=== PATIENT | male | born 1995 | race Hispanic/Latino ===

== ENCOUNTER 2023-09-01 09:15 | Inpatient (IN) | payer BC ==
[~2023-09-01] VITALS: Ht 182.9 cm; Wt 102.7 kg
[2023-09-01 12:05] LABS: BASOPHILS # (AUTO) 0.03 K/uL (0.00-0.20); BASOPHILS % (AUTO) 0.4 % (0.0-5.0); EOSINOPHILS # (AUTO) 0.06 K/uL (0.00-0.70); EOSINOPHILS % (AUTO) 0.8 % (0.0-8.0); IMMATURE GRANULOCYTE ABSOLUTE 0.02 K/uL (0-1); LYMPHOCYTES # (AUTO) 0.9 K/uL (1.0-4.8); LYMPHOCYTES % (AUTO) 11.3 % (21.0-51.0); MEAN CORPUSCULAR HEMOGLOBIN 30.9 pg (27.0-33.0); MEAN CORPUSCULAR HGB CONC 34.5 g/dL (32.0-36.0); MEAN CORPUSCULAR VOLUME 89.4 fL (79-99); MONOCYTES # (AUTO) 0.9 K/uL (0.1-1.0); MONOCYTES % (AUTO) 12.2 % (3.0-13.0); NEUTROPHILS # (AUTO) 5.7 K/uL (1.8-7.7); PLATELET COUNT (AUTO) 295 K/uL (130-400); RED BLOOD CELL COUNT(AUTO) 4.92 MIL/uL (4.50-6.20); RED CELL DISTRIBUTION WIDTH 11.5 % (11.0-15.5); WHITE BLOOD COUNT (AUTO) 7.6 K/uL (4.8-10.8)
[2023-09-01 12:13] VITALS: BP 124/75; PULSE 74; RESP 16
[2023-09-01 13:12] LABS: ALBUMIN 4.2 g/dL (3.5-5.0); BILIRUBIN,TOTAL 0.4 mg/dL (0.2-1.0); CREATININE 1.1 mg/dL (0.5-1.3); POTASSIUM 4.7 mmol/L (3.5-5.1); TOTAL PROTEIN, SERUM 8.9 g/dL (6.0-8.3)
[2023-09-01] MEDS ORDERED: GUAI120015 PO (13:15)
[2023-09-01] MEDS ORDERED: ACET-2247 PO (13:15)
[2023-09-03] VITALS (27 sets, daily range): BP systolic 127–145; BP diastolic 57–83; PULSE 73–103; RESP 16–19; O2SAT 96–99
[2023-09-03] MEDS: HYDROMORPHONE 1 MG INJ ONE (07:16)
[2023-09-03] MEDS: FAMOTIDINE 20MG VIAL IV ONE (07:17)
[2023-09-03] MEDS: ACETAMINOPHEN 1,000 MG/100 ML VIAL IV ONE (07:17)
[2023-09-03] MEDS ORDERED: LIDOCAINE PF 100MG/5ML (2%) SYRINGE 5ML ONE (07:21)
[2023-09-03] MEDS ORDERED: PROPOFOL 10 MG/ML 20ML VIAL IV ONE (07:21)
[2023-09-03] MEDS ORDERED: ROCURONIUM BROMIDE 10MG/1ML 5ML VL ONE ×2 (07:22→10:22)
[2023-09-03] MEDS ORDERED: MIDAZOLAM HCL 1 MG/ML 2ML VIAL ONE (07:22)
[2023-09-03] MEDS ORDERED: FENTANYL CITRATE PF 50 MCG/1 ML 2ML VIAL ONE (07:22)
[2023-09-03] MEDS ORDERED: BUPIVACAINE/PF 0.5% 30ML VIAL ONE (07:42)
[2023-09-03] MEDS: LACTATED RINGERS 1000ML 1,000 ML IV ONE (08:04)
[2023-09-03] MEDS: BUPIVACAINE/PF 0.5% 30ML VIAL INJ ONE (08:22)
[2023-09-03] MEDS: CEFAZOLIN SODIUM 2 GM VIAL ONE (08:40)
[2023-09-03] MEDS: METRONIDAZOLE 500MG/100ML BAG 200 ML ONE (08:45)
[2023-09-03] MEDS ORDERED: PHENYLEPHRINE HCL 10 MG/ML 1ML VIAL IV ONE (08:59)
[2023-09-03] MEDS ORDERED: ONDANSETRON 4MG INJ ONE (09:02)
[2023-09-03] MEDS ORDERED: DEXAMETHASONE SOD PHOSPHATE 4 MG/ML 1ML VIAL ONE (09:02)
[2023-09-03] MEDS ORDERED: FENTANYL CITRATE PF 50 MCG/1 ML 5ML AMP IV ONE (10:12)
[2023-09-03] MEDS ORDERED: NEOSTIGMINE METHYLSULFATE 1MG/ML IV ONE (10:13)
[2023-09-03] MEDS ORDERED: GLYCOPYRROLATE 0.2 MG/ML 5 ML VIAL ONE (10:13)
[2023-09-03] MEDS ORDERED: KETOROLAC 30MG VIAL (30MG/ML) ONE (12:32)
[2023-09-03] MEDS: KETOROLAC 30MG VIAL (30MG/ML) ONE (12:37)
[2023-09-03] MEDS: SUCRALFATE 1 GM/10 ML PO SCH (13:00)
[2023-09-03] MEDS ORDERED: ONDANSETRON 4MG INJ IVP PRN (13:00)
[2023-09-03] MEDS ORDERED: PROCHLORPERAZINE 10MG/2ML INJ IV PRN (13:00)
[2023-09-03] MEDS: ENOXAPARIN SODIUM 30 MG/0.3 ML SQ SCH (13:00)
[2023-09-03] MEDS: LACTATED RINGERS 1000ML 1,000 ML IV SCH (13:05)
[2023-09-03] MEDS: KETOROLAC 15MG/ML VIAL (15MG/ML) IV PRN (14:54)
[2023-09-03] MEDS: FAMOTIDINE 20MG VIAL IV SCH (19:52)
[2023-09-03] MEDS: HYDROCODONE/ACETAMINOPHEN 7.5/325 MG 15 ML UDCUP PO PRN (19:52)
[2023-09-04] VITALS (8 sets, daily range): BP systolic 131–155; BP diastolic 73–84; PULSE 76–92; RESP 13–20; O2SAT 92–98
[2023-09-04] MEDS: HYDROMORPHONE 1 MG INJ IVP PRN (04:33)
[2023-09-04] MEDS ORDERED: DIATR MEGLU/DIATRIZOATE SODIUM 30 ML BOTTLE ONE (08:27)
[2023-09-04] MEDS: KETOROLAC 15MG/ML VIAL (15MG/ML) IV SCH (10:08)
[2023-09-04] MEDS ORDERED: HYDROMORPHONE 0.5 MG SYG (0.5MG/0.5ML) IVP PRN (13:30)
[2023-09-04] MEDS: SIMETHICONE 80 MG TAB.CHEW PO PRN (13:52)
[2023-09-04] MEDS: ENOXAPARIN SODIUM 40 MG/0.4 ML SYRINGE SQ SCH (13:56)
[2023-09-04] MEDS: SIMETHICONE 80 MG TAB.CHEW PO SCH (17:55)
[2023-09-04] MEDS: BISACODYL 5 MG TABLET.DR PO SCH (20:25)
[2023-09-05] VITALS: BP 122/74; PULSE 76; RESP 20
[2023-09-05 04:00] VITALS: BP 142/84; PULSE 85; RESP 20
[2023-09-05 08:00] VITALS: BP 143/83; PULSE 99; RESP 18; O2SAT 90
[2023-09-05 11:53] VITALS: BP 140/81; PULSE 86; RESP 18
[2023-09-05 15:42] VITALS: BP 149/88; PULSE 80; RESP 18
== END 2023-09-05 16:10 | disposition home or self-care (01) | DRG 328 ==
LOC: DAHIP 09-03 06:03 → 4DH 09-03 14:10
PROVIDERS: ADMIT Surgery; ATTEND Surgery
PROC: 8E0W4CZ Robotic Assisted Procedure of Trunk Region, Percutaneous Endoscopic Approach (ICD-10-PCS; 2023-09-03)
PROC: 0DB38ZZ Excision of Lower Esophagus, Via Natural or Artificial Opening Endoscopic (ICD-10-PCS; principal; 2023-09-03 08:14)
PROC: 0BUT4JZ Supplement Diaphragm with Synthetic Substitute, Percutaneous Endoscopic Approach (ICD-10-PCS; 2023-09-03 08:14)
PROC: 0DB64ZZ Excision of Stomach, Percutaneous Endoscopic Approach (ICD-10-PCS; 2023-09-03 08:14)
PROC: 0DUU47Z Supplement Omentum with Autologous Tissue Substitute, Percutaneous Endoscopic Approach (ICD-10-PCS; 2023-09-03 08:14)
DX: K22.89 Other specified disease of esophagus (principal); K44.9 Diaphragmatic hernia without obstruction or gangrene; R19.09 Other intra-abdominal and pelvic swelling, mass and lump; K31.89 Other diseases of stomach and duodenum
CPT/HCPCS: 36415; 43235; 74240; 80053; 85025; 86850; 86900; 86901; 93005; G0378; J1100; J1170; J1650; J1885; J2001; J2250; J2371; J2405; J2704; J2710; J3010; J3490; J7030; J7120; Q9963; A4213; A4215; A4221; A4222; A4223; A4600; A4663; A6260; C1729; C1781; C9250; G0168; J0665; J0690

== ENCOUNTER → 2024-03-03 | Outpatient (CLI) | payer BC, OTHER ==
[~2024-03-03] MED LIST: ACET-2247 PO
--- NOTE | 2024-03-03 17:04 | HMCIMG ---
CHEST 2VWS HISTORY: Dyspnea COMPARISON: None FINDINGS: Frontal and lateral projections of the chest were obtained. There is no acute pulmonary infiltrates or failure. The heart is not enlarged. No evidence of aortic calcification is seen. Prominent interstitial markings are seen. IMPRESSION: 1. No acute pulmonary infiltrates.
== END | disposition home or self-care (01) ==
LOC: RAH 15:21
PROVIDERS: ATTEND Internal Medicine Cardiovascular Disease
DX: R06.09 Other forms of dyspnea (principal)
CPT/HCPCS: 71046

== ENCOUNTER → 2024-03-11 | Outpatient (CLI) | payer BC ==
[2024-03-11 16:36] LABS: CREATININE 1.1 mg/dL (0.5-1.3); MAGNESIUM 2.2 mg/dL (1.80-2.40); POTASSIUM 4.2 mmol/L (3.5-5.1)
== END | disposition home or self-care (01) ==
LOC: LAB 14:51
PROVIDERS: ATTEND Internal Medicine Cardiovascular Disease
DX: D13.0 Benign neoplasm of esophagus (principal); R00.2 Palpitations; R01.1 Cardiac murmur, unspecified; R06.09 Other forms of dyspnea
CPT/HCPCS: 36415; 80048; 83735; 84100

== ENCOUNTER → 2024-09-21 | Outpatient (CLI) | payer BC ==
--- NOTE | 2024-09-21 15:36 | HMCIMG ---
DOUBLE CONTRAST UPPER GI SERIES: CLINICAL HISTORY: Gastroparesis Finding: The study was performed using provocative maneuvers After swallowing effervescent crystal and thick barium, there is no definite intrinsic or extrinsic lesion seen in the esophagus. The stomach is normal in size, shape, and configuration. The rugal folds appear to be normal. The duodenal bulb, duodenal sweep, and upper jejunum appear to be normal. Fluoroscopy time: 0.9 minutes IMPRESSION: NORMAL DOUBLE CONTRAST UPPER GI SERIES.
== END | disposition home or self-care (01) ==
LOC: RAH 09:30
PROVIDERS: ATTEND Surgery
DX: K31.84 Gastroparesis (principal)
CPT/HCPCS: 74240